=== PATIENT | female | born 1970 | race Two or more races ===

== ENCOUNTER 2019-12-21 08:09 | Emergency (ER) | payer BC ==
[2019-12-21] MEDS ORDERED: KETOROLAC TROMETHAMINE 60 MG/2 ML SDV IM ONE (10:37)
[2019-12-21] MEDS ORDERED: ONDANSETRON HCL 8 MG TABLET PO ONE (10:37)
[2019-12-21] MEDS ORDERED: ONDANSETRON 4 MG TAB.RAPDIS ONE (10:49)
[2019-12-21 11:00] LABS: ABSOLUTE BASOPHILS # (AUTO) 0.1 10^3/uL (0.0-0.2); ABSOLUTE EOSINOPHILS # (AUTO) 0.1 10^3/uL (0.0-0.6); ABSOLUTE LYMPHOCYTES (AUTO) 2.3 10^3/uL (0.5-4.7); ABSOLUTE MONOCYTES (AUTO) 0.6 10^3/uL (0.1-1.4); ABSOLUTE NEUT (AUTO) 10.7 10^3/uL (1.7-8.2); BASOPHILS % (AUTO) 0.6 % (0-2); EOSINOPHILS % (AUTO) 0.6 % (0-6); HEMATOCRIT 41.6 % (36.0-47.0); HEMOGLOBIN 14.3 g/dL (12.0-15.5); LYMPHOCYTES % (AUTO) 16.4 % (13-45); MEAN CORPUSCULAR HEMOGLOBIN 32.5 pg (27.0-33.4); MEAN CORPUSCULAR HGB CONC 34.3 g/dL (32.0-36.0); MEAN CORPUSCULAR VOLUME 95 fl (80-97); MONOCYTES % (AUTO) 4.7 % (3-13); PLATELET COUNT 282 10^3/uL (150-450); RED BLOOD COUNT 4.39 10^6/uL (3.72-5.28); RED CELL DISTRIBUTION WIDTH 12.5 % (11.5-14.0); SEGMENTED NEUTROPHILS % (AUTO) 77.7 % (42-78); TOTAL CELLS COUNTED % (AUTO) 100 %; WHITE BLOOD COUNT 13.7 10^3/uL (4.0-10.5)
[2019-12-21 11:05] LABS: APPEARANCE,URINE SLIGHTLY-CLOUDY; BILIRUBIN,URINE NEGATIVE (NEGATIVE); COLOR,URINE YELLOW; GLUCOSE, URINE NEGATIVE (NEGATIVE); KETONES,URINE NEGATIVE (NEGATIVE); PROTEIN,URINE NEGATIVE (NEGATIVE); URINE SPECIFIC GRAVITY 1.011; UROBILINOGEN,URINE NEGATIVE mg/dL (<2.0)
[2019-12-21 11:19] LABS: ALBUMIN 4.1 g/dL (3.5-5.0); ALKALINE PHOSPHATASE 95 U/L (38-126); ANION GAP 7 (5-19); ASPARTATE AMINO TRANSFERASE 26 U/L (14-36); BILIRUBIN,DIRECT 0.2 mg/dL (0.0-0.4); BILIRUBIN,TOTAL 0.9 mg/dL (0.2-1.3); BLOOD UREA NITROGEN 8 mg/dL (7-20); CALCIUM 9.2 mg/dL (8.4-10.2); CARBON DIOXIDE 26 mmol/L (22-30); CHLORIDE 106 mmol/L (98-107); GLUCOSE 105 mg/dL (75-110); POTASSIUM 4.3 mmol/L (3.6-5.0); TOTAL PROTEIN 7.3 g/dL (6.3-8.2)
--- NOTE | 2019-12-21 11:44 | ER Document Report ---
ED General - General Chief Complaint: Headache Stated Complaint: HEADACHE,VOMITING Time Seen by Provider: 12/21/19 09:21 Primary Care Provider: SIRISHA ALVARADO FNP-C [Primary Care Provider] - Follow up as needed Mode of Arrival: Ambulatory Information source: Patient - [facility] Notes: Patient presents with approximately 4 days of headache and dizziness. Is worse when she stands up and exerts her self is better with rest. It is mainly posterior and throbbing. It is moderate in intensity. It does radiate across the back of her head. She denies any vision changes. She has had one episode of vomiting. Some nausea. No diarrhea. No rashes. No known tick bites. No known trauma. She denies any fevers. No cough cold or congestion. - Related Data Allergies/Adverse Reactions: No Known Allergies Allergy (Verified 12/21/19 10:25) Past Medical History - General Information source: Patient - Social History Smoking Status: Never Smoker Chew tobacco use (# tins/day): No Frequency of alcohol use: None Drug Abuse: None Family History: Reviewed & Not Pertinent Patient has homicidal ideation: No Review of Systems - Review of Systems Constitutional: denies: Chills, Fever EENT: denies: Nose congestion, Nose discharge Cardiovascular: denies: Chest pain, Palpitations -: Yes All other systems reviewed and negative Physical Exam - Vital signs Vitals: Temp Pulse Resp BP Pulse Ox 98.2 F 72 16 145/78 H 99 12/21/19 09:15 12/21/19 09:15 12/21/19 09:15 12/21/19 09:15 12/21/19 09:15 Interpretation: Normal - General General appearance: Appears well, Alert - HEENT Head: Normocephalic, Atraumatic Eyes: Normal Pupils: PERRL - Respiratory Respiratory status: No respiratory distress Chest status: Nontender Breath sounds: Normal Chest palpation: Normal - Cardiovascular Rhythm: Regular Heart sounds: Normal auscultation Murmur: No - Abdominal Inspection: Normal Distension: No distension Bowel sounds: Normal Tenderness: Nontender Organomegaly: No organomegaly - Back Back: Normal, Nontender - Extremities General upper extremity: Normal inspection, Nontender, Normal color, Normal ROM, Normal temperature General lower extremity: Normal inspection, Nontender, Normal color, Normal ROM, Normal temperature, Normal weight bearing. No: Jeronimo's sign - Neurological Neuro grossly intact: Yes Cognition: Normal Orientation: AAOx4 Serafin Coma Scale Eye Opening: Spontaneous [place] Coma Scale Verbal: Oriented [place] Coma Scale Motor: Obeys Commands Serafin Coma Scale Total: 15 Speech: Normal Cranial nerves: Normal Cerebellar coordination: Normal. 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 No: Pronator drift Sensory: Normal - Psychological Associated symptoms: Normal affect, Normal mood - Skin Skin Temperature: Warm Skin Moisture: Dry Skin Color: Normal Course - Re-evaluation Re-evalutation: 12/21/19 11:41 Patient presents with posterior headache and some nausea. She has a mildly elevated white blood cell count. I am going to send off a [place] spotted fever although patient has no known history of tick bite. Her presentation seems most consistent with a viral syndrome. She has no meningitic signs on exam. She does not appear toxic. Patient declines a CT of the head. Patient does understand that pathology such as a brain tumor or mass could be missed by declining the CT scan but patient is adamant that she does not want a CT scan. - Vital Signs Vital signs: Temp Pulse Resp BP Pulse Ox 98.2 F 72 16 145/78 H 99 12/21/19 09:15 12/21/19 09:15 12/21/19 09:15 12/21/19 09:15 12/21/19 09:15 - Laboratory Result Diagrams: 12/21/19 10:44 12/21/19 10:44 Laboratory results interpreted by me: 12/21/19 12/21/19 10:44 10:44 WBC 13.7 H Absolute Neuts (auto) 10.7 H Urine Blood MODERATE H Leukocyte Esterase Rfl SMALL H Discharge - Discharge Clinical Impression: Viral syndrome Headache Qualifiers: Headache type: unspecified Headache chronicity pattern: acute headache Intractability: intractable Qualified Code(s): R51 - Headache Condition: Stable Disposition: HOME, SELF-CARE Instructions: Headache ([facility]), Viral Syndrome ([facility]), Toradol Injection ([facility]) Prescriptions: Butalb/Acetaminophen/Caffeine [Fioricet (50-325-40 mg) Tablet] 1 tab PO Q4H #20 tab Forms: Return to Work Referrals: CHRISTIANO,SIRISHA B, CONVEYOR WEIGHER OPERATOR-C [Primary Care Provider] - Follow up in 3-5 days
[2019-12-21 12:00] VITALS: BP 133/84
== END 2019-12-21 11:55 | disposition home or self-care (01) ==
LOC: ER 08:09
DX: R51 Headache (principal); B34.9 Viral infection, unspecified; R11.2 Nausea with vomiting, unspecified; R42 Dizziness and giddiness
CPT/HCPCS: 99284; 96372; 36415; 85025; 81025; 80053; 81001; 86757; J1885; S0119